=== PATIENT | female | born 1935 | race African-American/Black ===

== ENCOUNTER 2017-02-25 10:32 | Emergency (ER) | payer MEDICARE, OTHER ==
--- NOTE | 2017-02-25 11:19 | ER Document Report ---
ED General - General Chief Complaint: Leg Injury Stated Complaint: FALL;LEG PAIN Mode of Arrival: Medic Information source: Patient Notes: Patient presents to the emergency department for complaints of left lower leg pain. Patient reports she was at physical therapy when she fell and landed right on her nose.. Patient reports she did not get dizzy she just tripped and fell. Denies change in LOC. Reports left lower leg calf pain hurts when she walks only. Denies pain at rest. No obvious deformity. patient had recent neck surgery, she believes it was a fusion. Denies neck and head pain. She declines pain medication. - HPI Onset: Just prior to arrival Onset/Duration: Sudden Quality of pain: Achy Severity: Moderate Associated symptoms: None Exacerbated by: Walking Relieved by: Denies Similar symptoms previously: No Recently seen / treated by doctor: No Past Medical History - General Information source: Patient - Social History Smoking Status: Former Smoker Cigarette use (# per day): No Chew tobacco use (# tins/day): No Frequency of alcohol use: None Drug Abuse: None Lives with: Family Family History: None - Past Medical History Cardiac Medical History: Reports: Hx Hypercholesterolemia, Hx Hypertension Pulmonary Medical History: Reports: Hx COPD Past Surgical History: Reports: Hx Gynecologic Surgery - tubal ligation, Hx Orthopedic Surgery - ramon knee replacement, cervical Review of Systems - Review of Systems Notes: Review HPI for review of systems., All other systems negative Physical Exam - Vital signs Vitals: Temp Pulse Resp BP Pulse Ox 97.7 F 54 L 16 132/62 H 98 02/25/17 10:43 02/25/17 10:43 02/25/17 10:43 02/25/17 10:43 02/25/17 10:43 - Notes Notes: PHYSICAL EXAMINATION: GENERAL: Well-appearing and in no acute distress nontoxic looking HEAD: Atraumatic, normocephalic. EYES: Pupils equal round and reactive to light, extraocular movements intact, sclera anicteric, conjunctiva are normal. ENT: TM WNL, nares patent- tip of nose with erythema, no septal hematoma, oropharynx clear without exudates. Moist mucous membranes. NECK: Normal range of motion, supple without lymphadenopathy denies pain LUNGS: CTAB and equal. No wheezes rales or rhonchi. HEART: Regular rate and rhythm without murmurs ABDOMEN: Soft, no tenderness. No guarding, no rebound EXTREMITIES: Normal range of motion, no pitting edema. No cyanosis. c/o left calf pain with movement, no obvious deformity, no swelling, no erythema, no pain at rest NEUROLOGICAL: Cranial nerves grossly intact. Normal sensory/motor exams. PSYCH: Normal mood, normal affect. SKIN: Warm, Dry, normal turgor, no rashes or lesions noted Course - Re-evaluation Re-evalutation: 02/25/17 11:16 Patient presents emergency department post fall. Patient reports she was at physical therapy. She reports she just recently had cervical surgery in November. 02/25/17 Patient and family instructed on negative CT negative x-ray. Patient requesting something stronger than Tylenol for the pain. Discussed [place]. Instructed patient to take half a tab. Patient will never be alone her is with her. Instructed on possibilities of feeling lightheaded and dizzy when taking narcotics she verbalized understanding. Patient was also instructed on the importance of follow-up with her primary care provider for recheck before returning to physical therapy. - Vital Signs Vital signs: Temp Pulse Resp BP Pulse Ox 97.7 F 55 L 18 141/60 H 95 02/25/17 10:43 02/25/17 12:40 02/25/17 12:40 02/25/17 12:40 02/25/17 12:40 - Diagnostic Test Radiology reviewed: Image reviewed, Reports reviewed Discharge - Discharge Clinical Impression: Fall, Pain in left lower leg, Elevated blood pressure reading Condition: Stable Disposition: HOME, SELF-CARE Instructions: Oral Narcotic Medication ([facility]) Additional Instructions: *You have been evaluated post fall for left lower leg pain and elevated blood pressure reading *Rest/Ice/Elevate your leg *Follow up with your primary care provider within one week for recheck *Take medication as prescribed- *Return to ED for worsening condition, changes, needs, concerns, swelling, redness to your leg Monitor your blood pressure. Your blood pressure was elevated today. This may be because you were anxious, in pain or because you need medication. It is important to follow up with your primary care provider for full evaluation. Prescriptions: Hydrocodone/Acetaminophen [[place] 5-325 Tablet] 1 each PO QID #10 tablet Forms: Elevated Blood Pressure Referrals: AGUSTIN LOCKE PA-C [Primary Care Provider] - Follow up as needed
[2017-02-25 13:11] VITALS: BP 141/60
== END 2017-02-25 12:40 | disposition home or self-care (01) ==
LOC: ER 10:32
DX: M79.605 Pain in left leg (principal); I10 Essential (primary) hypertension; W01.0XXA Fall on same level from slipping, tripping and stumbling without subsequent striking against object, initial encounter; Y93.B9 Activity, other involving muscle strengthening exercises; Y92.531 Health care provider office as the place of occurrence of the external cause; E78.00 Pure hypercholesterolemia, unspecified; J44.9 Chronic obstructive pulmonary disease, unspecified; Z98.51 Tubal ligation status; Z96.653 Presence of artificial knee joint, bilateral
CPT/HCPCS: 70450; 72125; 99284

== ENCOUNTER 2017-02-25 21:27 | Emergency (ER) | payer MEDICARE, OTHER ==
--- NOTE | 2017-02-26 00:11 | ER Document Report ---
HPI - HPI Patient complains to provider of: right hand and wrist pain Pain Level: 4 Context: Patient is an 81-year-old female that comes emergency department for chief complaint of pain and swelling to her right hand and wrist. He was evaluated here earlier today for a fall that she had during physical therapy where she fell on her face. She denies that she was dizzy or had any other symptoms, she reports it was a simple mechanical fall with tripping and falling. She mainly complained of leg pain and facial pain, states that after she left she noticed that her hand had become swelling and she had increasing pain over the area near the base of her thumb. Patient heart he had negative CT of the head, neck , and also x-ray of the leg. - REPRODUCTIVE LMP: na - DERM Skin Color: Normal Past Medical History - General Information source: Patient - Social History Smoking Status: Never Smoker Frequency of alcohol use: None Drug Abuse: None Lives with: Family Family History: None Patient has suicidal ideation: No Patient has homicidal ideation: No - Past Medical History Cardiac Medical History: Reports: Hx Hypercholesterolemia, Hx Hypertension Pulmonary Medical History: Reports: Hx COPD Renal/ Medical History: Denies: Hx Peritoneal Dialysis Past Surgical History: Reports: Hx Gynecologic Surgery - tubal ligation, Hx Orthopedic Surgery - ramon knee replacement, cervical - Immunizations Immunizations up to date: Yes Hx Diphtheria, Pertussis, Tetanus Vaccination: Yes Vertical Provider Document - CONSTITUTIONAL General Appearance: WD/WN, No Apparent Distress - INFECTION CONTROL TRAVEL OUTSIDE OF THE [place] IN LAST 30 DAYS: No - HEENT HEENT: Atraumatic, Normocephalic - RESPIRATORY Respiratory: Breath Sounds Normal, No Respiratory Distress O2 Sat by Pulse Oximetry: 96 - CARDIOVASCULAR Cardiovascular: Regular Rate, Regular Rhythm - GI/ABDOMEN Gastrointestinal: Abdomen Soft, Abdomen Non-Tender - BACK Back: Normal Inspection - MUSCULOSKELETAL/EXTREMETIES Musculoskeletal/Extremeties: Tender - There is tenderness with swelling over the dorsal aspect of the right hand and wrist, normal sensation, capillary refill, range of motion of the hand and wrist, normal upper extremity exam otherwise - NEURO Level of Consciousness: Awake, Alert, Appropriate - DERM Integumentary: Warm, Dry, No Rash Course - Re-evaluation Re-evalutation: Patient does have right hand soft tissue swelling specifically over the dorsal aspect in the wrist, patient is significantly tender in the right snuffbox area. X-ray of the hand is unremarkable. Patient has been evaluated for all other complaints and has no other complaints at this time. Discussed potential scaphoid fracture, splint placed, referring to orthopedics, discussed follow-up and return precautions, patient and family members state understanding and agreement. - Vital Signs Vital signs: Temp Pulse Resp BP Pulse Ox 97.9 F 55 L 20 165/52 H 96 02/25/17 21:51 02/25/17 21:51 02/25/17 21:51 02/25/17 21:51 02/25/17 21:51 Procedures - Immobilization right wrist Pre-Proc Neuro Vasc Exam: Normal Immobilizer type: Thumb spica Performed by: PCT Post-Proc Neuro Vasc Exam: Normal Alignment checked and good: Yes Discharge - Discharge Clinical Impression: Right wrist pain, Right hand pain Fall Qualifiers: Encounter type: initial encounter Qualified Code(s): W19.XXXA - Unspecified fall, initial encounter Condition: Stable Disposition: HOME, SELF-CARE Additional Instructions: X-ray does not show fracture, however your examination, pain in the scaphoid bone area, and swelling are concerning for a fracture that has not yet presented. Wear the thumb spica, please follow-up with orthopedics closely (see referral) for additional management of this injury. Return to the emergency department for any concerning symptoms. Referrals: TRISHA SOUZA DO [ACTIVE STAFF] - 02/28/17
[2017-02-26 03:21] VITALS: BP 150/65
== END 2017-02-26 00:55 | disposition home or self-care (01) ==
LOC: ER 21:27
PROC: 2W3CX1Z Immobilization of Right Lower Arm using Splint (ICD-10-PCS; principal; 2017-02-25)
DX: M79.641 Pain in right hand (principal); M25.531 Pain in right wrist; M79.606 Pain in leg, unspecified; R51 Headache; W01.0XXA Fall on same level from slipping, tripping and stumbling without subsequent striking against object, initial encounter; Y92.531 Health care provider office as the place of occurrence of the external cause
CPT/HCPCS: 99283

== ENCOUNTER → 2017-03-15 | Outpatient (CLI) | payer MEDICARE, OTHER ==
--- NOTE | 2017-03-15 14:48 | RADIOLOGY REPORT (SQ) ---
EXAM DESCRIPTION: VENOUS UNILATERAL LOWER COMPLETED DATE/TIME: 03/15/2017 2:13 pm REASON FOR STUDY: LLE PAIN, SWELLING COMPARISON: None. TECHNIQUE: Dynamic and static short scale and color images acquired of the left leg venous system. Se lected spectral images acquired with additional compression and augmentation maneuvers. The contralat eral common femoral vein and saphenofemoral junction were also imaged. Images stored on PACS. LIMITATIONS: None. FINDINGS: COMMON FEMORAL: Normal phasicity, compression and augmentation. No visualized echogenic ma terial on short scale. No defects on color images. FEMORAL: Normal compression and augmentation. No visualized echogenic material on short scale. No defe cts on color images. POPLITEAL: Normal compression, augmentation. No visualized echogenic material on short scale. No defec ts on color images. CALF VESSELS: Normal compression, augmentation. No visualized echogenic material on short scale. No de fects on color images. GSV and SSV: Normal compression, augmentation. No visualized echogenic material on short scale. No def ects on color images. ANY DEEP VENOUS INSUFFICIENCY: Not evaluated. ANY EVIDENCE OF POPLITEAL CYST: No. OTHER: No other significant finding. CONTRALATERAL COMMON FEMORAL VEIN AND SAPHENOFEMORAL JUNCTION: Normal phasicity, compression and augmentation. No visualized echogenic material on short scale. No de fects on color images. IMPRESSION: NO EVIDENCE DVT OR SVT IN THE LEFT LEG. TECHNICAL DOCUMENTATION: JOB ID: [id number] [employer]- All Rights Reserved
== END ==
LOC: SP 13:10
PROVIDERS: ATTEND Physician Assistant
DX: M79.89 Other specified soft tissue disorders (principal); R60.9 Edema, unspecified; R52 Pain, unspecified
CPT/HCPCS: 93971

== ENCOUNTER → 2019-12-21 | Outpatient (CLI) | payer MEDICARE, OTHER ==
--- NOTE | 2019-12-21 13:09 | WOMENS IMAGING REPORT ---
EXAM DESCRIPTION: RETROPERITONEAL U/S COMPLETED DATE/TIME: 12/21/2019 12:55 pm REASON FOR STUDY: N18.3 CHRONIC KIDNEY DISEASE, STAGE 3 (MODERATE) N18.3 CHRONIC KIDNEY DISEASE, ST AGE 3 (MODERATE) COMPARISON: None. TECHNIQUE: Dynamic and static grayscale images acquired of the kidneys and bladder and recorded on P ACS. Additional selected color Doppler and spectral images recorded. LIMITATIONS: None. FINDINGS: RIGHT KIDNEY: Normal in size measuring 11.9 cm. Normal echogenicity. No solid masses. There is a exophytic cyst measuring 6.4 cm. No hydronephrosis. Lower pole, nonobstructing punct ate stone. LEFT KIDNEY: Normal in size measuring 11.4 cm. Normal echogenicity. No solid masses. There is a lower pole simple cyst measuring 7 mm. No hydronephrosis. Scattered echogenic foci within the up per pole, largest measuring 5 mm. BLADDER: No masses. OTHER FINDINGS: No other significant finding. IMPRESSION: 1. No hydronephrosis. 2. Scattered bilateral punctate echogenic foci, likely nonobstructing stones. 3. 6.4 cm right renal cyst. TECHNICAL DOCUMENTATION: JOB ID: [id number] 2010 [employer]- All Rights Reserved Reading location - IP/workstation name: [email or web address]
== END ==
LOC: WI 11:31
PROVIDERS: ATTEND Internal Medicine Nephrology
DX: N18.3 Chronic kidney disease, stage 3 (moderate) (principal); N28.1 Cyst of kidney, acquired
CPT/HCPCS: 76770